=== PATIENT | female | born 1960 | race Caucasian/White ===

== ENCOUNTER 2016-08-20 19:07 | Emergency (ER) | payer MEDICAID ==
[~2016-08-20] VITALS: Ht 160 cm; Wt 68.0 kg
--- NOTE | 2016-08-20 19:17 | NUR ---
PT BIB FAMILY, AMBULATORY TO ER BED 1 FOR ABD PAIN X 1 YR. PT DENIES TRAUMA. PT AOX4 [place] SPEAKING, DAUGHTER AT BEDSIDE FOR TRANSLATION, RR EVEN AND UNLABORED. NO SOB NOTED. NAD NOTED. NO NVD AT THIS TIME. PT GOWNED AND PLACED ON MONITOR. PT WAITING FOR MD YING. URINE COLLECTED. CALLED LAB FOR [facility] COORDINATOR.
--- NOTE | 2016-08-20 19:41 | NUR ---
DR ANN AT BEDSIDE FOR EVAL
[2016-08-20 20:14] VITALS: BP 134/85
== END 2016-08-20 20:14 | disposition home or self-care (01) ==
LOC: ER 19:10
DX: D17.1 Benign lipomatous neoplasm of skin and subcutaneous tissue of trunk (principal)
CPT/HCPCS: A4606; Z7610

== ENCOUNTER 2016-10-01 21:31 | Emergency (ER) | payer MEDICAID ==
[~2016-10-01] VITALS: Ht 160 cm; Wt 68.0 kg
[2016-10-01 21:46] VITALS: BP 104/67
[2016-10-02] MEDS ORDERED: predniSONE 20 MG TABLET ONE (00:16)
[2016-10-02] MEDS ORDERED: HYDROCODONE/APAP 5/325MG 1 EACH TABLET ONE (00:16)
[2016-10-02] MEDS ORDERED: predniSONE 20 MG TABLET PO ONE (00:30)
[2016-10-02] MEDS ORDERED: HYDROCODONE/APAP 5/325MG 1 EACH TABLET PO ONE (00:30)
== END 2016-10-02 00:34 | disposition home or self-care (01) ==
LOC: ER 21:33
DX: M25.541 Pain in joints of right hand (principal); M25.542 Pain in joints of left hand; M19.90 Unspecified osteoarthritis, unspecified site; Z98.890 Other specified postprocedural states
CPT/HCPCS: A4606; Z7610

== ENCOUNTER 2016-10-21 21:06 | Inpatient (IN) | payer MEDICAID ==
[~2016-10-21] VITALS: Ht 152.4 cm; Wt 74.8 kg
[2016-10-21] MEDS ORDERED: VANCOMYCIN 1 GM in IV D5W 250 ML IV ONE (22:30)
[2016-10-21] MEDS ORDERED: PIPERACILLIN /TAZOBACTAM 3.375 G in IV D5W 50 ML IV ONE (22:30)
[2016-10-21] MEDS ORDERED: IV NS 0.9% 1,000 ML BAG IV ONE (22:30)
[2016-10-21] MEDS ORDERED: MORPHINE SULFATE INJ 2 MG/ML DISP.SYRIN ONE (22:44)
[2016-10-21] MEDS ORDERED: PIPERACILLIN /TAZOBACTAM 3.375 G VIAL IV ONE (22:45)
[2016-10-21] MEDS ORDERED: ONDANSETRON HCL/PF 4 MG/2 ML VIAL ONE (22:45)
[2016-10-21] MEDS ORDERED: IV NS 0.9% 1,000 ML ONE (22:45)
[2016-10-21] MEDS ORDERED: IV SET PRIMARY 1 EA INFUS.SET MC ONE (22:45)
[2016-10-21] MEDS ORDERED: MORPHINE SULFATE INJ 4 MG/ML DISP.SYRIN ONE (22:45)
[2016-10-21 22:58] LABS: BASOPHILS # (AUTO) 0.2 /CMM (0.0-0.2); EOSINOPHILS # (AUTO) 0.6 /CMM (0.0-0.7); EOSINOPHILS % (AUTO) 6.5 % (0.0-6.0); HEMATOCRIT 45 % (33-45); HEMOGLOBIN 14.7 g/dL (11.5-14.8); LYMPHOCYTES # (AUTO) 2.6 /CMM (0.8-4.8); LYMPHOCYTES % (AUTO) 28.6 % (20.0-44.0); MEAN CORPUSCULAR HEMOGLOBIN 31 PG (26.0-33.0); MEAN CORPUSCULAR HGB CONC 33 g/dl (31.0-36.0); MEAN CORPUSCULAR VOLUME 95 fL (82-100); MONOCYTES # (AUTO) 0.2 /CMM (0.1-1.30); NEUTROPHILS # (AUTO) 5.5 /CMM (1.8-8.9); NEUTROPHILS % (AUTO) 60.9 % (43.0-81.0); PLATELET COUNT (AUTO) 241 /CMM (150-450); RDW COEFFICIENT OF VARIATION 13.6 (11.5-15.0)
[2016-10-21 22:59] LABS: CALCIUM, SERUM 8.9 mg/dL (8.5-10.1); CREATININE 0.6 mg/dL (0.6-1.3); POTASSIUM 3.9 mmol/L (3.5-5.1)
[2016-10-21] MEDS ORDERED: ONDANSETRON HCL/PF 4 MG/2 ML VIAL IV ONE (23:00)
[2016-10-21] MEDS ORDERED: MORPHINE SULFATE INJ 2 MG/ML DISP.SYRIN IV ONE (23:00)
[2016-10-21] MEDS ORDERED: IV NS 0.9% 250 ML IV ONE (23:05)
[2016-10-21] MEDS ORDERED: IOHEXOL-300 100 ML VIAL IV ONE (23:05)
[2016-10-21 23:07] LABS: INR 0.89 (0.87-1.13); PROTHROMBIN TIME 9.5 SECS (9.5-12.7)
[2016-10-21] MEDS ORDERED: CT SWABBABLE VALVE TRANS SET 1 EA INFUS.SET MC ONE (23:07)
[2016-10-21] MEDS ORDERED: IV SET PRIMARY PUMP SET 1 EA INFUS.SET MC ONE (23:41)
[2016-10-21] MEDS ORDERED: IV D5W 0 ML IV ONE (23:41)
[2016-10-21] MEDS ORDERED: VANCOMYCIN 1 GM VIAL ONE (23:42)
[2016-10-22] VITALS (7 sets, daily range): BP systolic 100–120; BP diastolic 53–66
[2016-10-22] MEDS ORDERED: HYDROCODONE/APAP 5/325MG 1 EACH TABLET PO PRN (03:00)
[2016-10-22] MEDS ORDERED: ACETAMINOPHEN 325 MG TABLET PO PRN (03:00)
[2016-10-22] MEDS ORDERED: ONDANSETRON HCL/PF 4 MG/2 ML VIAL IVP PRN (03:00)
[2016-10-22] MEDS ORDERED: MAG HYDROX/AL HYDROX/SIMETH 30 ML UDC PO PRN (03:00)
[2016-10-22] MEDS ORDERED: MAGNESIUM HYDROXIDE 30 ML UDC PO PRN (03:00)
[2016-10-22] MEDS ORDERED: Z GUARD REMEDY 2 OZ OINT TP PRN (03:00)
[2016-10-22] MEDS ORDERED: ZOLPIDEM TARTRATE 5 MG TABLET PO PRN (03:00)
[2016-10-22] MEDS ORDERED: IV SET PRIMARY PUMP SET 1 EA INFUS.SET MC ONE (04:17)
[2016-10-22] MEDS ORDERED: IV NS 0.9% 1,000 ML ONE (04:17)
[2016-10-22] MEDS ORDERED: SECONDARY IV SET 1 EA INFUS.SET MC ONE (04:17)
[2016-10-22] MEDS ORDERED: VANCOMYCIN 1 GM VIAL ONE (04:42)
[2016-10-22] MEDS ORDERED: IV D5W 500 ML IV ONE (04:43)
[2016-10-22] MEDS ORDERED: VANCOMYCIN 1.25 GM in IV D5W 500 ML IV SCH (05:00)
[2016-10-22] MEDS: IV NS 0.9% 1,000 ML IV PRN (05:06)
[2016-10-22] MEDS ORDERED: FEE PK DOSING 1 MIN EA MC ONE (07:32)
[2016-10-22] MEDS: PANTOPRAZOLE 40 MG TABLET.DR PO SCH (08:31)
[2016-10-22] MEDS ORDERED: NAPR500T3 PO (08:39)
[2016-10-22] MEDS: VANCOMYCIN 0.75 GM in IV D5W 250 ML IV SCH ×2 (10:48→23:24)
[2016-10-23 00:10] VITALS: BP 104/58
[2016-10-23 04:11] VITALS: BP 131/73
[2016-10-23] MEDS: IV NS 0.9% 1,000 ML IV PRN ×2 (04:30→09:04)
[2016-10-23 06:25] LABS: EOSINOPHILS # (AUTO) 0.9 /CMM (0.0-0.7); EOSINOPHILS % (AUTO) 12.5 % (0.0-6.0); HEMATOCRIT 38 % (33-45); HEMOGLOBIN 12.9 g/dL (11.5-14.8); LYMPHOCYTES # (AUTO) 2.7 /CMM (0.8-4.8); LYMPHOCYTES % (AUTO) 36.4 % (20.0-44.0); MEAN CORPUSCULAR HEMOGLOBIN 32 PG (26.0-33.0); MEAN CORPUSCULAR HGB CONC 34 g/dl (31.0-36.0); MEAN CORPUSCULAR VOLUME 96 fL (82-100); MONOCYTES # (AUTO) 0.2 /CMM (0.1-1.30); MONOCYTES % (AUTO) 3.2 % (2.0-12.0); NEUTROPHILS # (AUTO) 3.6 /CMM (1.8-8.9); NEUTROPHILS % (AUTO) 47.9 % (43.0-81.0); PLATELET COUNT (AUTO) 187 /CMM (150-450); RDW COEFFICIENT OF VARIATION 13.5 (11.5-15.0); RED BLOOD CELL COUNT(AUTO) 4.01 MIL/uL (4.0-5.2); WHITE BLOOD COUNT (AUTO) 7.5 K/uL (4.3-11.0)
[2016-10-23 07:15] LABS: CALCIUM, SERUM 8.1 mg/dL (8.5-10.1); CREATININE 0.5 mg/dL (0.6-1.3); PHOSPHORUS 4.7 mg/dL (2.5-4.9); POTASSIUM 3.9 mmol/L (3.5-5.1)
[2016-10-23 08:00] VITALS: BP 103/81
[2016-10-23] MEDS: PANTOPRAZOLE 40 MG TABLET.DR PO SCH (08:33)
[2016-10-23 09:08] LABS: EOSINOPHILS % (MANUAL) 8 % (0-4); LYMPHOCYTES % (MANUAL) 17 % (16-48); MONOCYTES % (MANUAL) 6 % (0-11.0); NEUTROPHILS % (MANUAL) 69 (42-76)
[2016-10-23] MEDS: diphenhydrAMINE HCL 25 MG CAPSULE PO PRN ×3 (10:58→21:27)
[2016-10-23] MEDS: VANCOMYCIN 0.75 GM in IV D5W 250 ML IV SCH (11:23)
[2016-10-23 16:00] VITALS: BP 116/73
[2016-10-23 20:00] VITALS: BP 118/67
[2016-10-23] MEDS: VANCOMYCIN 1 GM in IV D5W 250 ML IV SCH (21:22)
[2016-10-24] MEDS: PANTOPRAZOLE 40 MG TABLET.DR PO SCH (06:46)
[2016-10-24 07:00] LABS: CALCIUM, SERUM 8.2 mg/dL (8.5-10.1); CREATININE 0.5 mg/dL (0.6-1.3); POTASSIUM 3.7 mmol/L (3.5-5.1)
[2016-10-24 08:00] VITALS: BP_SYST 112; BP_SYST 122; BP_DIAS 68; BP_DIAS 78
[2016-10-24] MEDS: VANCOMYCIN 1 GM in IV D5W 250 ML IV SCH (09:12)
[2016-10-24] MEDS: diphenhydrAMINE HCL 25 MG CAPSULE PO PRN (09:57)
[2016-10-24] MEDS ORDERED: DIPH25CA49 PO (12:08)
[2016-10-24] MEDS ORDERED: FAMO-131 PO (12:08)
== END 2016-10-24 14:19 | disposition home or self-care (01) | DRG 383 ==
LOC: ER 21:09 → MED 10-22 01:52 → TELE 10-22 04:09 → MED 10-22 10:10
PROVIDERS: ADMIT Internal Medicine; ATTEND Internal Medicine
DX: L03.211 Cellulitis of face (principal); D72.1 Eosinophilia; I10 Essential (primary) hypertension; T78.40XA Allergy, unspecified, initial encounter
CPT/HCPCS: 36415; 70460-TC; 70470-TC; 70487-TC; 80048-TC; 80202-TC; 82962-TC; 83735-TC; 84100-TC; 85025-TC; 85730-TC; 87081-TC; A4606; J2270; J2405; J2543; J3370; J7030; J7050; J7060; Q0163; Q9967; Z7610

== ENCOUNTER 2018-07-16 18:56 | Emergency (ER) | payer MEDICAID, OTHER ==
[~2018-07-16] VITALS: Ht 152.4 cm; Wt 69.4 kg
[~2018-07-16 18:56] MED LIST: DIPH25CA49 PO; FAMO-131 PO; NAPR-1009 PO
[2018-07-16 19:48] VITALS: BP 121/65
== END 2018-07-16 20:39 | disposition home or self-care (01) ==
LOC: ER 18:56
DX: R21 Rash and other nonspecific skin eruption (principal); M06.9 Rheumatoid arthritis, unspecified

== ENCOUNTER 2018-12-28 01:57 | Emergency (ER) | payer MEDICAID ==
[~2018-12-28] VITALS: Ht 154.9 cm; Wt 65.8 kg
[2018-12-28 02:21] VITALS: BP 154/76
== END 2018-12-28 03:13 | disposition home or self-care (01) ==
LOC: ER 01:59
DX: B34.9 Viral infection, unspecified (principal); F17.200 Nicotine dependence, unspecified, uncomplicated; M19.90 Unspecified osteoarthritis, unspecified site; Z79.899 Other long term (current) drug therapy
CPT/HCPCS: 71046

== ENCOUNTER 2019-05-21 23:56 | Emergency (ER) | payer MEDICAID ==
[~2019-05-21] VITALS: Ht 154.9 cm; Wt 70.3 kg
[2019-05-22 01:09] VITALS: BP 124/67
--- NOTE | 2019-05-22 01:10 | NUR ---
BIBSON. C/O BURNING, ITCHING, REDNESS AND SWELLING AROUND THE EYES. NASAL CONGESTION X 4 DAYS. NO ORAL MEDS TAKEN. EYEDROPS FOR ALLERGY TAKEN. No acute distress noted.
--- NOTE | 2019-05-22 01:29 | NUR ---
Patient discharged to home in stable condition. Written and verbal after care instructions given. Patient verbalizes understanding of instruction.
== END 2019-05-22 01:29 | disposition home or self-care (01) ==
LOC: ER 23:57
DX: J30.89 Other allergic rhinitis (principal); F17.200 Nicotine dependence, unspecified, uncomplicated; Z79.899 Other long term (current) drug therapy

== ENCOUNTER → 2021-06-03 | Emergency (ER) | payer MEDICAID ==
[~2021-06-03] VITALS: Ht 152.4 cm; Wt 86.2 kg
[2021-06-03 01:40] VITALS: BP 159/72
--- NOTE | 2021-06-03 01:42 | NUR ---
PT BIBS FROM HOME C/O "ITCHY EYES" [id number] AFTER USING CIPROFLOXACIN AND ERYTHROMYCIN DROPS FROM W[employer] WORKER AND PCP. PT A/OX4. TOLERATING R/A WELL WITH NO SOB.
--- NOTE | 2021-06-03 02:30 | NUR ---
PT DC'D AWARE TO F/U WITH HOME [employer]ISH[employer] SALES REPRESENTATIVE ON SATURDAY.
== END | disposition home or self-care (01) ==
LOC: ER 01:06
DX: J30.9 Allergic rhinitis, unspecified (principal); M19.90 Unspecified osteoarthritis, unspecified site; F17.200 Nicotine dependence, unspecified, uncomplicated; Z79.1 Long term (current) use of non-steroidal anti-inflammatories (NSAID); Z79.899 Other long term (current) drug therapy